=== PATIENT | male | born 1955 | race Caucasian/White ===

== ENCOUNTER 2017-09-13 07:37 | Emergency (ER) | payer MEDICARE ==
[2017-09-13] MEDS ORDERED: KETOROLAC 60 MG/2 ML VIAL ONE (08:59)
[2017-09-13] MEDS ORDERED: KETOROLAC 30 MG/ML VIAL ONE (08:59)
[2017-09-13] MEDS ORDERED: DEXAMETHASONE 10 MG/ML VIAL ONE (09:02)
[2017-09-13] MEDS: KETOROLAC 60 MG/2 ML VIAL IM STA (09:14)
[2017-09-13] MEDS: DEXAMETHASONE 10 MG/ML VIAL PO STA (09:14)
[2017-09-13] MEDS ORDERED: ONDANSETRON ODT 4 MG TABLET ONE (09:55)
[2017-09-13] MEDS ORDERED: HYDROmorphone 1 MG/ML SYRINGE ONE (09:55)
[2017-09-13] MEDS: HYDROmorphone 1 MG/ML SYRINGE IM STA (09:55)
[2017-09-13] MEDS: ONDANSETRON ODT 4 MG TABLET TL STA (09:56)
--- NOTE | 2017-09-13 10:03 | ED Physician Documentation ---
PD HPI BACK PAIN - Stated complaint Stated Complaint: BACK/HIP INJ/GLF - Chief complaint Chief Complaint: Ext Problem - History obtained from History obtained from: Patient, Family - History of Present Illness Timing - onset: How many days ago (12) Timing - duration: Days (12) Timing - details: Abrupt onset, Still present Location: Lower, Right Quality: Pain, Spasm, Sharp, Similar to prior episodes Associated symptoms: No: Fever, Weakness, Numbness, Incontinent of urine, Unable to urinate, Hematuria, Incontinent of stool Improves with: Rest, Position, Meds Worsened by: Movement, Lifting, Twisting Contributing factors: Other (The patient reports a fall 12 days ago) Similar symptoms before: Diagnosis (sciatica) Recently seen: Not recently seen - Additional information Additional information: 62-year-old male with a history of sciatica as had a fall about 12 days ago and since that time he has had pain in his lower back and radiation of the pain down his right leg into his right hip. He has pain with any weightbearing and with any movement. He does prefer to stand. His pain is much worse over the past 3 days. He is now unable to control the pain. Review of Systems Constitutional: denies: Fever Nose: denies: Congestion Throat: denies: Sore throat Cardiac: denies: Chest pain / pressure Respiratory: reports: Cough GI: denies: Vomiting : denies: Dysuria, Frequency, Hematuria Skin: denies: Rash Musculoskeletal: reports: Back pain, Extremity pain. denies: Neck pain, Extremity swelling, Joint swelling Neurologic: reports: Numbness. denies: Generalized weakness, Focal weakness PD PAST MEDICAL HISTORY - Present Medications Home Medications: Ambulatory Orders Medication Instructions Recorded Confirmed Cyclobenzaprine [Flexeril] 10 mg PO TID PRN #20 tablet 09/13/17 HYDROcod/ACETAM 5/325 [[place] 5/325] 1 - 2 ea PO Q6H PRN #15 tablet 09/13/17 Lisinopril 10 mg PO DAILY 09/13/17 09/13/17 Metoprolol Tartrate 25 mg PO DAILY 09/13/17 09/13/17 - Allergies Allergies/Adverse Reactions: Allergies Allergy/AdvReac Type Severity Reaction Status Date / Time No Known Drug Allergies Allergy Verified 09/13/17 07:51 - Social History Does the pt smoke?: Yes Smoking Status: Current every day smoker PD ED PE NORMAL - Vitals Vital signs reviewed: Yes (hypertensive ) - General General: Well developed/nourished, Other (The patient appears to be in pain ) - HEENT HEENT: Atraumatic, PERRL - Respiratory Respiratory: No respiratory distress - Back Back: No CVA TTP, Other (There is paraspinous muscle tenderenss to the right lower lumbar spine and especially into the sciatic notch,. 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 He is administered dexamethasone and Toradol without much relief and subsequently is administered Dilaudid 1 mg IM and Zofran sublingual. Departure - Departure Disposition: 01 Home, Self Care Clinical Impression: Sciatica Qualifiers: Laterality: right Qualified Code(s): M54.31 - Sciatica, right side Condition: Stable Instructions: ED Sciatica Follow-Up: Dari Rockwell ARNP [Primary Care Provider] - Prescriptions: Cyclobenzaprine [Flexeril] 10 mg PO TID PRN #20 tablet PRN Reason: Spasms HYDROcod/ACETAM 5/325 [[place] 5/325] 1 - 2 ea PO Q6H PRN #15 tablet PRN Reason: Pain
[2017-09-13 10:23] VITALS: BP 140/85
== END 2017-09-13 10:22 | disposition home or self-care (01) ==
LOC: ED 07:37
DX: M54.31 Sciatica, right side (principal); F17.200 Nicotine dependence, unspecified, uncomplicated; Z91.81 History of falling
CPT/HCPCS: 96372; 99283

== ENCOUNTER 2017-10-16 15:43 | Outpatient (CLI) | payer MEDICARE ==
--- NOTE | 2017-10-17 09:23 | XRAY Report ---
EXAM: LUMBOSACRAL SPINE RADIOGRAPHY EXAM DATE: 10/16/2017 03:58 PM. CLINICAL HISTORY: LUMBAGO WITH SCIATICA, LEFT SIDE. COMPARISONS: None available. TECHNIQUE: 3 views. FINDINGS: Alignment: There is a mild convex right scoliosis with a [place]o angle measuring approximately 7 degrees from the top of T12 to the bottom of L3. Bones: Five rep-fjm-dvyonww lumbar vertebral bodies are present. No fractures or bone lesions. Disks: There is intervertebral disk space narrowing greatest at L3-S1. Facets: There is facet hypertrophy greatest at L4-L5 and L5-S1. Sacroiliac Joints: Unremarkable. Soft Tissues: Atherosclerotic vascular calcifications are present. The visualized bowel gas pattern i s normal. IMPRESSION: 1. Mild convex right scoliotic curvature. 2. Multilevel degenerative spondylosis. [facility] Referring Provider Line: [phone] SITE ID: [id number]
== END 2017-10-16 15:44 | disposition home or self-care (01) ==
LOC: DI.S 15:43
PROVIDERS: ATTEND Family Medicine
DX: M47.896 Other spondylosis, lumbar region (principal); M47.897 Other spondylosis, lumbosacral region; M41.85 Other forms of scoliosis, thoracolumbar region
CPT/HCPCS: 72100

== ENCOUNTER 2017-10-28 16:45 | Outpatient (CLI) | payer MEDICARE ==
--- NOTE | 2017-10-30 15:41 | MRI Preliminary Report ---
Exam: MRI LUMBAR SPINE W/O IMPRESSION: 1. Snil-cz-ohemwwcy degenerative disk and facet changes. 2. Disk osteophyte complex, facet hypertrophy, and prominent epidural fat at L4-L5 result in moderate central canal stenosis. Disk and hypertrophied right facet contact and may impinge the traversing ri ght L5 nerve root. 3. Disk bulge, protrusions, facet hypertrophy, and prominent epidural fat at L3-L4 result in mild mike tral canal stenosis. Disk may contact the bilateral traversing L4 nerve roots, right greater than lef t. 5. Small central and left paracentral disk protrusion at L5-S1. 6 mm ovoid focus of prominent soft ti ssue along the anterior aspect left S1 nerve root at this level. This may be due to the enlarged nerv e root and neuritis versus possible sequestered disk fragment. 6. Varying degrees of neural foramen stenosis, most prominent at L4-L5 on the right where there is mo derate stenosis. Comment: The following findings are so common in adults without low back pain that while we report th eir presence, they must be interpreted with caution and in the context of the clinical situation. (Re paola Graves et al, Spine 2001) Prevalence of findings in patients without low back pain: Disk degeneration (any evidence): 92% Disk desiccation/T2 signal loss: 83% Disk height loss: 56% Disk bulge: 64% Disk protrusion: 32% Annular tear/high intensity zone: 38% [facility] SITE ID: [id number]
--- NOTE | 2017-10-30 16:28 | MRI Report ---
EXAM: MRI LUMBAR SPINE WITHOUT CONTRAST EXAM DATE: 10/28/2017 05:22 PM. CLINICAL HISTORY: Lumbago with sciatica, left side. COMPARISON: Radiographs 10/16/2017. TECHNIQUE: Multiplanar, multisequence T1-weighted and fluid-sensitive sequences of the lumbar spine f rom T12 to S1 without contrast. Other: None. FINDINGS: Spinal Cord: The conus terminates at L1. Fatty filum terminale noted. The conus medullaris and cauda equina are otherwise unremarkable. Alignment: Mild S-shaped thoracolumbar curvature. No spondylolisthesis. Bone Marrow: Five cdj-iro-wcaytce lumbar vertebral bodies are present. No gross fractures or bone les ions. Mild diskogenic edema at L4-L5 centered toward the right. Disk Levels/Facets: Disk desiccation throughout. Mild to moderate disk height loss at L4-L5. Mild dis k height loss at L5-S1. T11-T12: Sagittal images only. Mild bilateral facet hypertrophy. No stenosis. T12-L1: Sagittal images only. Mild bilateral facet hypertrophy. No stenosis. L1-L2: Sagittal images only. Small bilobed disk bulge. Mild bilateral facet hypertrophy. Minimal cent ral canal stenosis. L2-L3: Small bilobed disk bulge. Mild bilateral facet and ligamentum flavum hypertrophy. Minimal cent ral canal stenosis. L3-L4: Small broad-based disk bulge with small central and bilateral foraminal protrusions. Mild bila teral facet and ligamentum flavum hypertrophy. Prominent epidural fat contributes to mild central can al stenosis. Disk may contact the bilateral traversing L4 nerve roots, right greater than left. Mild bilateral neural foramen stenosis. L4-L5: Small broad-based disk/osteophyte complex extending into the bilateral neural foramen, right g reater than left. Moderate bilateral facet and ligamentum flavum hypertrophy. Prominent epidural fat contributes to moderate central canal stenosis. Disk and hypertrophied right facet contact and may im pinge the traversing right L5 nerve root. Moderate right and mild left neural foramen stenosis. L5-S1: Small broad-based disk/osteophyte complex with small central and left paracentral disk protrus ion. 6 mm ovoid focus of prominent soft tissue projects along the anterior aspect of the left S1 nerv e root (axial images 4). This may be due to the nerve root itself versus possible sequestered disk fr agment. Minimal bilateral facet hypertrophy. Mild bilateral neural foramen stenosis. Musculature: Mild fatty atrophy in the paraspinous and gluteal muscles. No gross muscle edema. Other: The partially visualized retroperitoneum is unremarkable. IMPRESSION: 1. Ifqa-we-kwtqcdam degenerative disk and facet changes. 2. Disk/osteophyte complex, facet hypertrophy, and prominent epidural fat at L4-L5 result in moderate central canal stenosis. Disk and hypertrophied right facet contact and may impinge the traversing ri ght L5 nerve root. 3. Disk bulge, protrusions, facet hypertrophy, and prominent epidural fat at L3-L4 result in mild mike tral canal stenosis. Disk may contact the bilateral traversing L4 nerve roots, right greater than lef t. 4. Small central and left paracentral disk protrusion at L5-S1. 6 mm ovoid focus of prominent soft ti ssue along the anterior aspect left S1 nerve root at this level. This may be due to the enlarged nerv e root and neuritis versus possible sequestered disk fragment. 5. Varying degrees of neural foramen stenosis, most prominent at L4-L5 on the right where there is mo derate stenosis. Comment: The following findings are so common in adults without low back pain that while we report th eir presence, they must be interpreted with caution and in the context of the clinical situation. (Re paola Graves et al, Spine 2001) Prevalence of findings in patients without low back pain: Disk degeneration (any evidence): 92% Disk desiccation/T2 signal loss: 83% Disk height loss: 56% Disk bulge: 64% Disk protrusion: 32% Annular tear/high intensity zone: 38% [facility] Referring Provider Line: [phone] SITE ID: [id number]
== END 2017-10-28 16:46 | disposition home or self-care (01) ==
LOC: DI 16:45
PROVIDERS: ATTEND Family Medicine
DX: M51.26 Other intervertebral disc displacement, lumbar region (principal); M51.27 Other intervertebral disc displacement, lumbosacral region; M51.36 Other intervertebral disc degeneration, lumbar region; M47.897 Other spondylosis, lumbosacral region; M47.896 Other spondylosis, lumbar region
CPT/HCPCS: 72148

== ENCOUNTER 2019-01-07 08:00 | Outpatient (CLI) | payer MEDICARE ==
[2019-01-07 17:54] LABS: BASOPHILS # (AUTO) 0.1 10^3/uL (0.0-0.1); BASOPHILS % (AUTO) 0.9 %; EOSINOPHILS # (AUTO) 0.3 10^3/uL (0.0-0.7); EOSINOPHILS % (AUTO) 4.1 %; HGB - HEMOGLOBIN 15.9 g/dL (14.0-18.0); LYMPHOCYTES # (AUTO) 2.2 10^3/uL (1.5-3.5); MEAN CORPUSCULAR HEMOGLOBIN 32.4 pg (27.0-31.0); MEAN CORPUSCULAR HGB CONC 33.4 g/dL (32.0-36.0); MEAN CORPUSCULAR VOLUME 96.8 fL (80.0-94.0); MEAN PLATELET VOLUME 8.5 fL (7.4-11.4); MONOCYTES # (AUTO) 0.7 10^3/uL (0.0-1.0); MONOCYTES % (AUTO) 9.3 %; NEUTROPHILS # (AUTO) 4.1 10^3/uL (1.5-6.6); NEUTROPHILS % (AUTO) 55.7 %; PLT - PLATELET COUNT 259 10^3/uL (130-450); RED BLOOD COUNT 4.92 10^6/uL (4.70-6.10); RED CELL DISTRIBUTION WIDTH 13.2 % (12.0-15.0); WHITE BLOOD COUNT 7.3 x10^3/uL (4.8-10.8)
[2019-01-07 18:42] LABS: ALBUMIN 4.1 g/dL (3.2-5.5); ALKALINE PHOSPHATASE 62 IU/L (42-121); ALT ALANINE AMINOTRANSFERASE 39 IU/L (10-60); AST ASPARTATE AMINOTRANSFERASE 33 IU/L (10-42); BILIRUBIN,TOTAL 0.7 mg/dL (0.2-1.0); BUN - BLOOD UREA NITROGEN 16 mg/dL (6-20); CALCIUM 9.8 mg/dL (8.5-10.3); CARBON DIOXIDE - CO2 26 mmol/L (21-32); CHLORIDE 101 mmol/L (101-111); CHOL/HDL RATIO 4.1 (<5.0); CHOLESTEROL 143 mg/dL; CREATININE 0.9 mg/dL (0.6-1.2); GFR - MDRD 85 (>89); GLUCOSE 89 mg/dL (70-100); HDL CHOLESTEROL 35 mg/dL; LDL CHOLESTEROL,CALCULATED 94 mg/dL; LDL/HDL RATIO 2.7 (<3.6); SODIUM 135 mmol/L (135-145); TOTAL PROTEIN 8.1 g/dL (6.7-8.2); VLDL CHOLESTEROL 14 mg/dL
== END 2019-01-07 23:59 | disposition home or self-care (01) ==
LOC: LAB.S 08:00
PROVIDERS: ATTEND Nurse Practitioner
DX: Z00.00 Encounter for general adult medical examination without abnormal findings (principal)
CPT/HCPCS: 36415; 80053; 80061; 83721; 85025

== ENCOUNTER 2020-01-22 07:33 | Outpatient (CLI) | payer MEDICARE ==
[2020-01-22 09:59] LABS: BASOPHILS # (AUTO) 0.1 10^3/uL (0.0-0.1); BASOPHILS % (AUTO) 1.1 %; EOSINOPHILS # (AUTO) 0.5 10^3/uL (0.0-0.7); EOSINOPHILS % (AUTO) 6.9 %; HGB - HEMOGLOBIN 15.8 g/dL (14.0-18.0); LYMPHOCYTES # (AUTO) 2.6 10^3/uL (1.5-3.5); LYMPHOCYTES % (AUTO) 36.7 %; MEAN CORPUSCULAR HEMOGLOBIN 33.3 pg (27.0-31.0); MEAN CORPUSCULAR HGB CONC 34.8 g/dL (32.0-36.0); MEAN CORPUSCULAR VOLUME 95.6 fL (80.0-94.0); MEAN PLATELET VOLUME 9.8 fL (7.4-11.4); MONOCYTES # (AUTO) 0.6 10^3/uL (0.0-1.0); MONOCYTES % (AUTO) 8.9 %; NEUTROPHILS # (AUTO) 3.3 10^3/uL (1.5-6.6); NEUTROPHILS % (AUTO) 46.3 %; PLT - PLATELET COUNT 229 10^3/uL (130-450); RED BLOOD COUNT 4.75 10^6/uL (4.70-6.10); WHITE BLOOD COUNT 7.2 x10^3/uL (4.8-10.8)
[2020-01-22 10:15] LABS: ALBUMIN/GLOBULIN RATIO 1.1 (1.0-2.2); ALKALINE PHOSPHATASE 61 IU/L (42-121); ALT ALANINE AMINOTRANSFERASE 43 IU/L (10-60); AST ASPARTATE AMINOTRANSFERASE 39 IU/L (10-42); BILIRUBIN,TOTAL 0.5 mg/dL (0.2-1.0); BUN - BLOOD UREA NITROGEN 12 mg/dL (6-20); CARBON DIOXIDE - CO2 24 mmol/L (21-32); CHLORIDE 104 mmol/L (101-111); CHOL/HDL RATIO 4.1 (<5.0); CHOLESTEROL 152 mg/dL; CREATININE 0.8 mg/dL (0.6-1.2); GLUCOSE 121 mg/dL (70-100); HDL CHOLESTEROL 37 mg/dL; LDL CHOLESTEROL,CALCULATED 103 mg/dL; LDL/HDL RATIO 2.8 (<3.6); SODIUM 135 mmol/L (135-145); TOTAL PROTEIN 7.7 g/dL (6.7-8.2); VLDL CHOLESTEROL 12 mg/dL
== END 2020-01-22 07:34 | disposition home or self-care (01) ==
LOC: LAB.S 07:33
PROVIDERS: ATTEND Registered Nurse
DX: I73.9 Peripheral vascular disease, unspecified (principal); I10 Essential (primary) hypertension; F17.211 Nicotine dependence, cigarettes, in remission; N52.9 Male erectile dysfunction, unspecified
CPT/HCPCS: 36415; 80053; 80061; 83721; 84153; 84154; 84443; 85025